=== PATIENT | female | born 1965 | race American Indian/Alaskan Native ===

== ENCOUNTER 2017-01-19 15:24 | Outpatient (CLI) | payer OTHER ==
--- NOTE | 2017-01-19 16:38 | Mammography Report ---
BILATERAL DIGITAL SCREENING MAMMOGRAM with CAD: 01/19/17 15:24:00 CLINICAL: Routine screening. COMPARISON:10/24/15, 05/10/14 and 02/16/13 FINDINGS: The breasts are heterogeneously dense, which may obscure small masses. A right upper outer oval circumscribed mass or cyst requires additional imaging.No architectural distortion or suspicious calcifications.The left breast is negative. IMPRESSION: Right upper outer mass or cyst requiring further workup. BI-RADS CATEGORY: 0 -- Additional Imaging Evaluation Required RECOMMENDATION: Recall for a targeted right upper outer breast breast ultrasound. ACR BI-RADS MAMMOGRAPHIC CODES: 0 = Needs additional imaging evaluation; 1 = Negative; 2 = Benign; 3 = Probably benign; 4 = Suspicious; 5 = Malignant; 6 = Known biopsy-proven malignancy COMMENT: 1. Dense breast tissue, i.e., adenosis, fibrocystic changes, etc., may obscure an underlying neoplasm. 2. Approximately 10% of cancers are not detected with mammography. 3. A negative mammography report should not delay biopsy if a clinically suspicious mass is present. COMMENT: Patient follow-up letters are generated via our [employer] application.
== END 2017-01-19 15:25 | disposition home or self-care (01) ==
LOC: SPVWC 15:24
PROVIDERS: ATTEND Family Medicine
DX: Z12.31 Encounter for screening mammogram for malignant neoplasm of breast (principal)
CPT/HCPCS: 77067; G0202

== ENCOUNTER 2017-03-02 08:06 | Outpatient (CLI) | payer OTHER ==
--- NOTE | 2017-03-02 09:05 | Ultrasound Report ---
Right breast ultrasound: Imaging of the right breast is performed based on a circumscribed nodule in the superior lateral right breast seen on recent screening exam of January 19. In the 9:00 location 4 cm from the nipple there is a well-circumscribed anechoic mass measuring 8.8 mm consistent in size and location with the mammographic nodule. Minimal distal enhancement. 6 cm from nipple there are 2 adjacent similar nodules each measuring 5 mm or less. In the 11:00 location 3 cm from the nipple and much smaller anechoic nodule is present. No solid nodules identified. No other significant findings. Impression: The mammographic nodule corresponds to a simple cyst by ultrasound. Recommendation: Annual mammogram followup. BI-RADS CATEGORY: 2 = Benign ACR BI-RADS MAMMOGRAPHIC CODES: 0 = Needs additional imaging evaluation; 1 = Negative; 2 = Benign; 3 = Probably benign; 4 = Suspicious; 5 = Malignant; 6 = Known biopsy-proven malignancy COMMENT: 1. Dense breast tissue, i.e., adenosis, fibrocystic changes, etc., may obscure an underlying neoplasm. 2. Approximately 10% of cancers are not detected with mammography. 3. A negative mammography report should not delay biopsy if a clinically suspicious mass is present.
== END 2017-03-02 08:07 | disposition home or self-care (01) ==
LOC: SPVWC 08:06
PROVIDERS: ATTEND Family Medicine
DX: N63.10 Unspecified lump in the right breast, unspecified quadrant (principal); R92.8 Other abnormal and inconclusive findings on diagnostic imaging of breast